=== PATIENT | female | born 1995 | race African-American/Black ===

== ENCOUNTER 2016-12-07 14:50 | Emergency (ER) | payer OTHER ==
--- NOTE | 2016-12-07 15:39 | PD ---
HPI Chief Complaint Contractions Date Seen: Dec 07, 2016 Time Seen: 15:00 (Martin White MD R1) Travel History International Travel<30 Days: No Contact w/Intl Traveler<30Days: No Known Affected Area: No (Martin White MD R1) History of Present Illness HPI Patient is a 21-year-old at 38 weeks 5 days who presents with contractions. She reports that her contractions started last week, and became acutely worse yesterday. She is currently having contractions about every 7 minutes for the last 1-2 hours. She reports lower abdominal pain and lower back pain, left greater than right. She reports vaginal bleeding the day before yesterday, she says she was having bright red spotting all day. She denies any leakage of fluid. She reports movement. Patient reports some nausea and vomiting all , unchanged from baseline. Patient reports diarrhea all day yesterday and today. Patient reports dysuria but denies any fever or chills. Patient had her care at [facility] in [place]. Para: 2 : 6 (Martin White MD R1) HPI Patient seen and evaluated with resident under direct supervision, agree with assessment and plan. (Roni Gastelum MD) History Past Medical History Narrative Medical Patient reports a history of hypokalemia (Martin White MD R1) Obstetric History Obstetric History Patient is a . She reports that she lost 3 early on. She delivered to full term uncomplicated babies with uncomplicated pregnancies with normal birthweight. (Martin White MD R1) Past Surgical History Surgical History: No Previous Surgery (Martin White MD R1) Family History Narrative Family History Patient denies a family history of hypertension, diabetes, problems in . She reports that the father of the baby has hemophilia. (Martin White MD R1) Social History Narrative Social History Patient recently moved in with her parents in the area, after she moved from [place]. She reports a little bit of tobacco marijuana use at the beginning of the . Alcohol Use: No Tobacco Use: No Substance Abuse: No (Martin White MD R1) Allergies-Medications (Allergen,Severity, Reaction): Coded Allergies: No Known Allergies (Unverified , 12/07/16) Review of Systems General / Constitutional: No: Fever, Chills Eyes: No: Visual changes HENT: No: Headaches Cardiovascular: Edema (feet swelling), No: Chest Pain or Discomfort Respiratory: No: Short of Breath Gastrointestinal: Nausea (at baseline, throughout all ), Vomiting (at baseline, throughout all ), Diarrhea (for the past 2 days), Abdominal Pain (lower abdominal pain, left greater than right) Genitourinary: Dysuria Musculoskeletal: Cramping (low abdominal and back pain), Edema (feet swelling) , Pain (low abdominal and back pain) Neurologic: No: Headache (Martin White MD R1) Physical Exam Blood pressure 127/85, pulse 91, respiratory rate 20, temperature 97.9, pain 5. Narrative GENERAL: Well-nourished, well-developed female patient. SKIN: Warm and dry. HEAD: Normocephalic and atraumatic. EYES: No scleral icterus. No injection or drainage. ENT: No nasal drainage noted. Mucous membranes pink. Airway patent. NECK: Supple, trachea midline. No JVD. CARDIOVASCULAR: Regular rate and rhythm without murmurs, gallops, or rubs. RESPIRATORY: Breath sounds equal bilaterally. No accessory muscle use. ABDOMEN/GI: Abdomen soft, non-tender, bowel sounds present, no rebound, no guarding Gravid to 38 weeks size GENITOURINARY: External Genitalia: intact and normal in appearance Cervix: Anterior, soft Dilatation: 1-2 cm Effacement: 60 percent Station: -3 Presentation: Vertex Membranes: Intact Uterine Contractions: Every 2-3 minutes FHT's: Category: Category 1 Baseline: 140 Reactive: Reactive Variability: Moderate Decels: None EXTREMITIES: No cyanosis or edema. BACK: Nontender without obvious deformity. No CVA tenderness. NEUROLOGICAL: Awake and alert. Motor and sensory grossly within normal limits. Five out of 5 muscle strength in all muscle groups. Normal speech. (Martin White MD R1) Data Data Vital Signs Reviewed: Yes (Martin White MD R1) MDM Plan Patient is a 21-year-old at 38 weeks 5 days who presents with contractions. 1. Contractions every 2-3 minutes with a cervical exam of 1-2 cm dilation, 60 percent effaced, -3 station Monitor vital signs Monitor labor status with tocometry Monitor heart tones UA Encourage by mouth hydration 2. dysuria UA remarkable for 30 protiein, 40 ketones, small leuk est, few mucus, not c/f infection 3. GBS status unknown GBS swab sent records obtained Addendum: Contractions seemed to have stopped. heart tracing still reassuring. Cervical exam shows no significant change. d/w Dr. Gastelum (Martin White MD R1) Attending Attestation Patient seen and evaluated with resident under direct supervision, agree with assessment and plan. (Roni Gastelum MD) Diagnosis Diagnosis: Primary Impression: Irregular contractions Additional Impression: Uterine contractions during Ruled Out: Labor and delivery, indication for care, Labor and delivery indication for care or intervention Disposition: 01 DISCHARGE HOME Condition: Good Martin White MD R1 Dec 07, 2016 15:39 Roni Gastelum MD Dec 07, 2016 16:49
[2016-12-07 15:57] LABS: BLOOD, URINE NEG (NEG); COMMENT (UR) CULT NOT INDICATED; CULTURE IF INDICATED CULT NOT INDICATED; GLUCOSE,URINE NEG (NEG); KETONE, URINE 40 mg/dL (NEG); MUCUS URINE FEW /lpf (OCC); NITRITE,URINE NEG (NEG); SQUAMOUS EPITHELIAL CELL URINE 7 /hpf (0-5); URINE COLOR YELLOW (YELLW/STRAW)
[2016-12-07 16:43] VITALS: BP 115/85; PULSE 92
[2016-12-11] MEDS ORDERED: PREN1MIS19 PO (15:03)
== END 2016-12-07 19:42 | disposition home or self-care (01) ==
LOC: HOBED 14:50
DX: O47.1 False labor at or after 37 completed weeks of gestation (principal); R30.0 Dysuria; Z3A.38 38 weeks gestation of pregnancy
CPT/HCPCS: 59025; 81001; 87081

== ENCOUNTER 2016-12-09 14:22 | Emergency (ER) | payer OTHER ==
[~2016-12-09] VITALS: Ht 160 cm; Wt 76.7 kg
--- NOTE | 2016-12-09 16:45 | PD ---
HPI Chief Complaint Contractions Date Seen: Dec 09, 2016 Time Seen: 16:40 Travel History International Travel<30 Days: No Contact w/Intl Traveler<30Days: No Known Affected Area: No History of Present Illness HPI 21-year-old 6 para 2 at 39 weeks gestation who has had increased contractions this morning. She denies any leakage of fluid or bleeding. She reports good movement. Para: 2 : 6 Miscarriage: 3 History Past Medical History Narrative Medical History of hypokalemia Obstetric History Obstetric History 3 SABs 2 prior vaginal deliveries She has had her care in the [place] area and has relocated here in the last week. Past Surgical History Surgical History: No Previous Surgery Family History Family History: she reports the father of the baby had hemophilia but she is uncertain of the nature of this Social History Alcohol Use: No Tobacco Use: No Substance Abuse: No Allergies-Medications (Allergen,Severity, Reaction): Coded Allergies: No Known Allergies (Unverified , 12/07/16) Review of Systems Except as stated in HPI: all other systems reviewed are Neg Physical Exam Narrative GENERAL: Well-nourished, well-developed patient. SKIN: Warm and dry. HEAD: Normocephalic and atraumatic. EYES: No scleral icterus. No injection or drainage. ENT: No nasal drainage noted. Mucous membranes pink. Airway patent. NECK: Supple, trachea midline. No JVD. CARDIOVASCULAR: Regular rate and rhythm without murmurs, gallops, or rubs. RESPIRATORY: Breath sounds equal bilaterally. No accessory muscle use. ABDOMEN/GI: Abdomen soft, non-tender, bowel sounds present, no rebound, no guarding Gravid to [-] weeks size Fundal Height: [-] GENITOURINARY: External Genitalia: intact and normal in appearance BUS glands: [-] Cervix: [-] Dilatation: [-2-3] Effacement: [70-] Station: [-3-] Presentation: [v] Membranes: [intact] Uterine Contractions: [-Mild irregular] FHT's: Category: [-1] Baseline: [-] Reactive: [-] Variability: [-] Decels: [-] EXTREMITIES: No cyanosis or edema. BACK: Nontender without obvious deformity. No CVA tenderness. NEUROLOGICAL: Awake and alert. Motor and sensory grossly within normal limits. Five out of 5 muscle strength in all muscle groups. Normal speech. MDM Medical Record Reviewed: Yes Narrative Course / MDM Assessment: 39 week intrauterine not in labor Plan: After serial exams today she was unchanged with mild contractions and discharged home to continue follow up with care for women. Diagnosis Diagnosis: Primary Impression: Irregular contractions Additional Impression: 39 weeks gestation of Disposition: 01 DISCHARGE HOME Patient Instructions: General Instructions, Early Labor Signs (ED), Movement (ED) Departure Forms: Tests/Procedures Roni Gastelum MD Dec 09, 2016 16:45
[2016-12-11] MEDS ORDERED: PREN1MIS19 PO (15:03)
== END 2016-12-09 17:11 | disposition home or self-care (01) ==
LOC: HOBED 14:22
DX: O47.1 False labor at or after 37 completed weeks of gestation (principal); Z3A.39 39 weeks gestation of pregnancy
CPT/HCPCS: 59025

== ENCOUNTER 2016-12-11 21:57 | Emergency (ER) | payer OTHER ==
[~2016-12-11 21:57] MED LIST: PREN1MIS19 PO
[2016-12-11 22:13] VITALS: BP 119/84; PULSE 100
[2016-12-11 22:19] VITALS: RESP 18; TEMP 97.8
--- NOTE | 2016-12-11 22:24 | PD ---
HPI Chief Complaint contractions with ROM Date Seen: Dec 11, 2016 Time Seen: 22:10 (Reji Holt MD R1) Travel History International Travel<30 Days: No Contact w/Intl Traveler<30Days: No Known Affected Area: No (Reji Holt MD R1) History of Present Illness HPI 21 YO at 39/2 weeks presents stating she is feeling contractions 5 minutes apart since 6PM and her "water broke" at 8PM. Pt is GBS+ and taking only PNV but took a Tylenol this evening. Category 1 tracing. Para: 2 : 6 (Reji Holt MD R1) History Past Medical History Medical History: Denies Significant Hx (Reji Holt MD) Past Surgical History Surgical History: No Previous Surgery (Reji Holt MD) Family History Family History: Negative (Reji Holt MD) Social History Alcohol Use: No Substance Abuse: Yes (smoked marijuana early in ) (Reji Holt MD R1) Allergies-Medications (Allergen,Severity, Reaction): Coded Allergies: No Known Allergies (Unverified , 12/13/16) Home Meds Active Scripts Vit W/ Ferrous Fumara (Pnv Plus Multivi 27-1 & 312 mg)1 Mis Mis1 Cap PO DAILY #90 BOTTLE Ref 4 Prov:Martin White MD R2 12/11/16 Discontinued Scripts Acetaminophen (Eq Acetaminophen)325 Mg [id number] Mg PO Q4H PRN (PAIN SCALE 1 TO 2) #30 TAB Prov:Martin White MD R2 12/14/16 Ibuprofen 600 Mg [id number] Mg PO Q6H PRN ( CRAMPING) #30 TAB Prov:Martin White MD R2 12/14/16 Review of Systems General / Constitutional: No: Fever, Weight Gain, Weight Loss, Chills, Other Eyes: No: Diploplia, Blurred Vision, Visual changes, Pain, Photophobia, Other HENT: No: Headaches, Vertigo, Dental Difficulties, Lightheadedness, Other Cardiovascular: No: Irregular Rhythm, Chest Pain or Discomfort, Palpitations, Tachycardia, Syncope, Varicosities, Edema, Cyanosis, Other Respiratory: No: Cough, Short of Breath, Wheezing, Other Gastrointestinal: No: Nausea, Vomiting, Diarrhea, Abdominal Pain, Hematemesis, Hematochezia, Constipation, Changes in Bowel Habits, Indigestion, Loss of Appetite, Other Genitourinary: Pelvic Pain (contractions), Discharge (gush of white fluid) Musculoskeletal: No: Limited ROM, Weakness, Cramping, Edema, Pain, Other Skin: No Rash, No Itching, No Dryness, No Lumps, No Change in Pigmentation, No Change in Nails, No Alopecia, No Lesions, No Breast Lumps, No Breast Tenderness , No Breast Swelling, No Other Neurologic: No: Weakness, Dizziness, Syncope, Focal Abnormalities, Coordination Problem, Headache, Slurred Speech, Seizures, Other (Reji Holt MD R1) Physical Exam Vital Signs Date Time Temp Pulse Resp B/P Pulse Ox O2 Delivery O2 Flow Rate FiO2 12/11/16 22:19 97.8 18 12/11/16 22:13 100 119/84 Narrative GENERAL: Well-nourished, well-developed patient in some discomfort. SKIN: Warm and dry. HEAD: Normocephalic and atraumatic. EYES: No scleral icterus. No injection or drainage. EOMI. ENT: No nasal drainage noted. Mucous membranes pink. Airway patent. NECK: Supple, trachea midline. CARDIOVASCULAR: Regular rate and rhythm without murmurs, gallops, or rubs. RESPIRATORY: Breath sounds equal bilaterally w/no increased WOB. No accessory muscle use. ABDOMEN/GI: Abdomen soft, non-tender, bowel sounds present, no rebound, no guarding Gravid to 39 weeks size GENITOURINARY: External Genitalia: intact and normal in appearance Cervix: anterior Dilatation: 3 Effacement: 80 Station: -1 Presentation: vtx Membranes: intact Uterine Contractions: 7 minutes, regular FHT's: Category: 1 Baseline: 160 Reactive: yes Variability: moderate Decels: none EXTREMITIES: No cyanosis or edema. NEUROLOGICAL: Awake and alert. Motor and sensory grossly within normal limits. Five out of 5 muscle strength in all muscle groups. Normal speech. (Reji Holt MD R1) Data Data Orders Vital Signs (Adult) .ON ADMISSION (12/11/16 22:18) ^ Labor Status (12/11/16 22:18) ^ Non Stress Test (12/11/16 22:18) ^ Hydration (12/11/16 22:18) Pamg-1 Test .ONCE (12/11/16 22:18) (Reji Holt MD R1) MDM Medical Record Reviewed: Yes Narrative Course / MDM 21YO at 39/2 weeks presents with contractions since 6PM and subjective ROM at 8PM, amnisure negative, cervix anterior, 3/80/-1/vertex. GBS+. Category 1 tracing with baseline at 160. 1. IUP at 39/2 weeks - Amnisure neg -- ROM unlikely - Regular contractions at 7 minutes - Tylenol 650 mg PO PRN for pain - Monitor for [address] Prado Addendum: Reevaluated at 2315 hours - no changes in status - discharge home ( Reji Holt MD R1) Diagnosis Diagnosis: Primary Impression: 39 weeks gestation of Additional Impression: False labor, antepartum Disposition: DISCHARGE HOME Condition: Stable Collaborating MD Comments Patient seen and evaluated with resident.Agree with care. (Urvashi Sylvester MD) Reji Holt MD R1 Dec 11, 2016 22:24 Urvashi Sylvester MD Dec 25, 2016 10:43
== END 2016-12-11 23:22 | disposition home or self-care (01) ==
LOC: HOBED 21:57
DX: O47.1 False labor at or after 37 completed weeks of gestation (principal); Z3A.39 39 weeks gestation of pregnancy
CPT/HCPCS: 59025; 84112

== ENCOUNTER 2016-12-13 03:13 | Inpatient (IN) | payer OTHER ==
[2016-12-13] VITALS (63 sets, daily range): BP systolic 85–153; BP diastolic 61–133; PULSE 73–159; RESP 16–20; TEMP 97.6–98.6
[~2016-12-13] VITALS: Ht 160 cm; Wt 76.7 kg
[2016-12-13] MEDS ORDERED: LACTATED RINGER'S 1000 ML INJ 1,000 ML IV PRN (03:47)
[2016-12-13] MEDS ORDERED: CITRIC ACID-SODIUM CITRATE LIQ 30 ML UDC PO SCH (04:00)
[2016-12-13] MEDS ORDERED: OXYTOCIN 30 UNITS-500ML PREMIX 500 ML IV ONE (04:00)
[2016-12-13] MEDS ORDERED: MINERAL OIL 10 ML VIAL TOPICAL PRN (04:00)
[2016-12-13] MEDS ORDERED: ONDANSETRON HCL 4 MG/2 ML VIAL IV PRN (04:00)
[2016-12-13] MEDS ORDERED: LIDOCAINE HCL 1% 50 ML VIAL I-DERMAL PRN (04:00)
[2016-12-13] MEDS ORDERED: SODIUM CHLORID 0.9% 500 ML INJ 500 ML IV PRN (04:00)
[2016-12-13] MEDS ORDERED: PENICILLIN G POTASSIUM INJ 5,000,000 UNITS in SODIUM CHLORIDE 0.9% INJ 100 ML IV ONE (04:00)
[2016-12-13] MEDS ORDERED: LIDOCAINE HCL 1% 50 ML VIAL INFIL PRN (04:00)
[2016-12-13] MEDS ORDERED: SODIUM CHLOR 0.9% 1000 ML INJ 1,000 ML IV PRN (04:07)
--- NOTE | 2016-12-13 04:09 | HHI.HP ---
HPI Chief Complaint contractions Date Seen: Dec 13, 2016 Time Seen: 03:45 (Raheem Hanley MD R2) Travel History International Travel<30 Days: No Contact w/Intl Traveler<30Days: No Known Affected Area: No (Raheem Hanley MD R2) History of Present Illness HPI This is a 21-year-old at 39/4 weeks gestational age see presented to the OB ED for contractions. Planned for induction this morning however she is already going into labor. She feels her contractions every 5-7 minutes. She was in the clinic today and found to have a dilation of 3. Since that she has progress to a 4. She denies any big gush of fluid. She reports good movement. She denies any bleeding or discharge. She says she feels a contractions in her back and pelvis. She is also feeling some increased pelvic pressure. She has been blurry vision, right upper quadrant abdominal pain, headache, lower extremity swelling. She is having a baby girl and she is looking forward to seeing her. Of note patient is GBS positive Para: 2 : 6 (Raheem Hanley MD R2) History Past Medical History Narrative Medical History of hypokalemia (Raheem Hanley MD R2) Obstetric History Obstetric History Patient is a . She reports that she lost 3 early on. She delivered two full term uncomplicated babies with uncomplicated pregnancies with normal birthweight (Raehem Hanley MD R2) Past Surgical History Surgical History: No Previous Surgery (Raheem Hanley MD R2) Family History Narrative Family History Patient denies a family history of hypertension, diabetes, problems in . She reports that the father of the baby has hemophilia. (Raheem aHnley MD R2) Social History Narrative Social History Patient recently moved in with her parents in the area, after she moved from [place]. She reports a little bit of tobacco marijuana use at the beginning of the . Alcohol Use: No Tobacco Use: No Substance Abuse: No (Raheem Hanley MD R2) Allergies-Medications (Allergen,Severity, Reaction): Coded Allergies: No Known Allergies (Unverified , 12/12/16) Home Meds Active Scripts Vit W/ Ferrous Fumara (Pnv Plus Multivi 27-1 & 312 mg)1 Mis Mis1 Cap PO DAILY #90 BOTTLE Ref 4 Prov:Martin White MD R1 12/11/16 Review of Systems General / Constitutional: Weight Gain, No: Fever, Weight Loss Eyes: No: Blurred Vision, Visual changes, Photophobia HENT: No: Headaches, Lightheadedness Cardiovascular: No: Irregular Rhythm, Chest Pain or Discomfort, Syncope, Edema Respiratory: No: Cough, Short of Breath, Wheezing Gastrointestinal: Nausea, Abdominal Pain, No: Vomiting, Hematemesis, Hematochezia, Indigestion Genitourinary: Pelvic Pain, No: Urgency, Frequency, Dysuria, Discharge, Menorrhagia, Vaginal Bleeding Musculoskeletal: No: Weakness, Edema Skin: No Rash, No Itching Neurologic: No: Weakness, Syncope, Headache, Slurred Speech, Seizures Psychiatric: No: Anxiety, Depression (Raheem Hanley MD R2) Physical Exam Narrative GENERAL: Well-nourished, well-developed patient. SKIN: Warm and dry. HEAD: Normocephalic and atraumatic. EYES: No scleral icterus. No injection or drainage. ENT: No nasal drainage noted. Mucous membranes pink. Airway patent. NECK: Supple, trachea midline. No JVD. CARDIOVASCULAR: Regular rate and rhythm without murmurs, gallops, or rubs. RESPIRATORY: Breath sounds equal bilaterally. No accessory muscle use. ABDOMEN/GI: Abdomen soft, non-tender, bowel sounds present, no rebound, no guarding Gravid to 39 weeks size Fundal Height: 39 GENITOURINARY: Cervix: Soft Dilatation: 4 Effacement: 80 Station: -1 Presentation: Vertex Membranes: Intact Uterine Contractions: None FHT's: Category: 2 Baseline: 140 Reactive: Up to 160 Variability: Moderate Decels: Variables EXTREMITIES: No cyanosis or edema. BACK: Nontender without obvious deformity. No CVA tenderness. NEUROLOGICAL: Awake and alert. Motor and sensory grossly within normal limits. Five out of 5 muscle strength in all muscle groups. Normal speech. (Raheem Hanley MD R2) Data Data Vital Signs Reviewed: Yes Orders Admit To Inpatient (12/13/16 ) Code Status (12/13/16 03:47) Vital Signs (Adult) .Per protocol (12/13/16 03:47) Activity Oob Ad Tiara (12/13/16 03:47) Heart (12/13/16 03:47) Amnioinfusion (12/13/16 03:47) Urinary Catheter Management .ONCE (12/13/16 03:47) Diet Npo (12/13/16 Breakfast) Lactated Ringer's 1000 Ml Inj (Lr 1000 M (12/13/16 03:47) Lactated Ringer's 1000 Ml Inj (Lr 1000 M (12/13/16 03:47) Sodium Chlorid 0.9% 500 Ml Inj (Ns 500 M (12/13/16 04:00) Sodium Chlor 0.9% 1000 Ml Inj (Ns 1000 M (12/13/16 04:07) Lidocaine 1% Inj (50 Ml) (Xylocaine 1% I (12/13/16 04:00) Citric Acid-Sodium Citrate Liq (Bicitra (12/13/16 04:00) Ondansetron Inj (Zofran Inj) (12/13/16 04:00) Fentanyl Inj (Fentanyl Inj) (12/13/16 04:00) Fentanyl Inj (Fentanyl Inj) (12/13/16 04:00) Penicillin G Potassium Inj (Pfizerpen-G (12/13/16 04:00) Penicillin G Potassium Inj (Pfizerpen-G (12/13/16 08:00) Complete Blood Count With Diff (12/13/16 03:47) Hold Clot (12/13/16 03:47) Abo/Rh Blood Type (12/13/16 03:47) Urinalysis - C+S If Indicated (12/13/16 03:47) Resp Oxygen Non Rebreathe Mask (12/13/16 ) ^ Epidural / Intrathecal Infus (12/13/16 03:47) Oxytocin 30 Units-500ml Premix (Pitocin (12/13/16 04:00) Lidocaine 1% Inj (50 Ml) (Xylocaine 1% I (12/13/16 04:00) Light Mineral Oil (Muri-Lube Oil) (12/13/16 04:00) Inpatient Certification (12/13/16 ) Specimen To Be Collected PRN (12/13/16 03:47) Ob/Psych Drug Screen, Urine (12/13/16 03:47) (Raheem Hanley MD R2) Assessment/Plan Problem List: (1) 39 weeks gestation of (2) Uterine contractions during Assessment and Plan This is a 21-year-old at 39/4 weeks gestational age presenting for induction of labor. 1. IUP: GBS positive, intact -Continuous monitoring for contractions: None -Continuous monitoring: Category 2 due to variables -Start penicillin -History of drug abuse: Urine drug screen ordered -Patient is requesting epidural when appropriate -Anticipate AROM in the am -Anticipate Pitocin to start contractions in the a.m. Discharge Planning Disposition discharged to to 3 days after delivery (Raheem Hanley MD R2) Attestation Agree with above. Start oxytocin if no no cervical change in 2-4 hours. (Darlin Alford MD) Raheem Hanley MD R2 Dec 13, 2016 04:09 Darlin Alford MD Dec 13, 2016 04:23
[2016-12-13] MEDS: LACTATED RINGER'S 1000 ML INJ 1,000 ML IV SCH ×2 (04:25→09:03)
[2016-12-13 04:58] LABS: AUTOMATED NEUTROPHIL # 7.1 TH/MM3 (1.8-7.7); BASOPHIL % 0.3 % (0.0-2.0); EOSINOPHIL # 0.1 TH/MM3 (0-0.4); EOSINOPHIL % 1.2 % (0.0-4.0); HEMATOCRIT 31.1 % (35.0-46.0); HEMO FLAGS DIFF FINAL; LYMPH % 20.2 % (9.0-44.0); MEAN CELL VOLUME 89.5 FL (80.0-100.0); MEAN CORPUSCULAR HEMOGLOBIN 31.3 PG (27.0-34.0); MEAN CORPUSCULAR HGB CONC 34.9 % (32.0-36.0); MONO % 6.4 % (0.0-8.0); NEUT % 71.9 % (16.0-70.0); PLATELET COUNT 215 TH/MM3 (150-450); RED BLOOD COUNT 3.47 MIL/MM3 (4.00-5.30); RED CELL DISTRIBUTION WIDTH 13.3 % (11.6-17.2); WHITE BLOOD COUNT 9.9 TH/MM3 (4.0-11.0)
[2016-12-13] MEDS ORDERED: PREN1TAB63 (05:09)
[2016-12-13 05:11] LABS: AMPHETAMINE, URINE NEG (NEG); BACTERIA, URINE RARE /hpf; BARBITURATES, URINE NEG (NEG); BLOOD, URINE NEG (NEG); COCAINE, URINE NEG (NEG); COMMENT (UR) CULT NOT INDICATED; CULTURE IF INDICATED CULT NOT INDICATED; GLUCOSE,URINE NEG (NEG); KETONE, URINE 80 mg/dL (NEG); MUCUS URINE FEW /lpf (OCC); NITRITE,URINE NEG (NEG); SQUAMOUS EPITHELIAL CELL URINE 2 /hpf (0-5); URINE COLOR YELLOW (YELLW/STRAW)
[2016-12-13] MEDS ORDERED: OXYTOCIN 30 UNITS-500ML PREMIX 500 ML IV SCH ×2 (07:45→11:45)
[2016-12-13] MEDS ORDERED: PENICILLIN G POTASSIUM INJ 2,500,000 UNITS in SODIUM CHLORIDE 0.9% INJ 100 ML IV SCH (08:00)
[2016-12-13] MEDS ORDERED: fentaNYL 2MCG-BUPIV 0.125% INJ 100 ML ONE (08:01)
--- NOTE | 2016-12-13 10:16 | PD.LABORPN ---
Subjective Subjective Epidural placed at 9 AM. AROM (clear fluid) at 9:45 AM, followed by IUPC placement. Pitocin at 2 milliunits/minute. Increased to 3 milliunits/minute after IUPC placement. Patient is comfortable; does not feel contractions. Legs are numb. Objective Vital Signs Vital Signs Date Time Temp Pulse Resp B/P Pulse Ox O2 Delivery O2 Flow Rate FiO2 12/13/16 10:00 16 12/13/16 10:00 20 12/13/16 10:00 97.6 75 116/72 12/13/16 09:59 75 118/78 12/13/16 09:55 79 12/13/16 09:55 102/90 12/13/16 09:51 111/67 12/13/16 09:51 79 12/13/16 09:50 153/133 12/13/16 09:50 77 12/13/16 09:45 92 133/111 12/13/16 09:43 82 110/61 12/13/16 09:40 81 12/13/16 09:40 88 133/104 12/13/16 09:35 79 12/13/16 09:35 84 119/73 12/13/16 09:31 84 114/69 12/13/16 09:30 90 12/13/16 09:26 103 102/73 12/13/16 09:25 83 12/13/16 09:24 18 12/13/16 09:22 92 130/79 12/13/16 09:20 93 12/13/16 09:15 81 12/13/16 09:15 80 122/79 12/13/16 09:15 81 12/13/16 09:11 159 114/75 12/13/16 09:10 82 12/13/16 09:10 82 12/13/16 09:06 118 118/81 12/13/16 09:05 77 12/13/16 09:05 78 12/13/16 09:00 78 12/13/16 09:00 77 12/13/16 09:00 75 142/77 12/13/16 08:55 79 12/13/16 08:55 92 12/13/16 08:55 94 129/87 12/13/16 08:50 76 127/86 12/13/16 08:50 77 12/13/16 08:50 78 8/3/17 08:49 76 131/85 12/13/16 08:45 75 12/13/16 08:45 87 125/92 12/13/16 08:45 86 12/13/16 08:45 16 12/13/16 08:35 83 12/13/16 08:34 83 120/79 12/13/16 08:30 84 12/13/16 07:40 73 12/13/16 07:35 86 12/13/16 07:30 77 12/13/16 07:25 75 12/13/16 07:20 87 12/13/16 07:19 98.0 12/13/16 07:18 77 111/72 12/13/16 07:17 16 12/13/16 07:17 78 92/69 12/13/16 07:15 85 12/13/16 07:10 80 12/13/16 07:05 76 12/13/16 07:00 77 12/13/16 06:10 73 12/13/16 06:05 74 12/13/16 06:03 75 112/67 12/13/16 05:41 18 12/13/16 05:35 97.8 Objective Pelvic Exam: Dilatation: 5 cm Effacement: 80 Station: 0 Presentation: Vertex Membranes: AROM; clear fluid Uterine Contractions: q2-3min FHT's: Category: 1 Baseline: 133 Reactive: + Variability: Moderate Decels: None Assessment/Plan Assessment and Plan Patient is a 21 y/o at 39 weeks and 4 days currently in active labor. * Epidural in place. * Pitocin running at 3 milliunits/min. Titrate up by 1-2 milliunits every 30 minutes to allow for adequate contractions. * AROM at 9:45 a.m.; clear fluid. * IUPC placement at 10:00 a.m. * Continuous monitoring. GBS positive * Has received Penicillin G x2. Joselin Luna MD R1 Dec 13, 2016 10:16
[2016-12-13] MEDS ORDERED: ePHEDrine/NS 25 MG/5 ML SYR IV PRN (10:30)
[2016-12-13] MEDS ORDERED: fentaNYL 2MCG-BUPIV 0.125% 100 ML EPIDURAL SCH (10:30)
[2016-12-13] MEDS ORDERED: NO SYSTEM NARCOTICS PRN (10:30)
[2016-12-13] MEDS ORDERED: DO NOT ADMINISTER ANTICOAGULANTS PRN (10:30)
--- NOTE | 2016-12-13 11:34 | PD.OB.DELI ---
Delivery Date: Dec 13, 2016 Anesthesia: Epidural Episiotomy: None Vaginal Delivery: Normal Presentation: Occiput posterior Nuchal Cord: None Delayed cord clamping (45 sec): Yes Infant: Female One Minute : 8 Five Minute : 9 Weight: 2910g Placenta: Spontaneous delivery, Intact, 3 vessel cord Laceration: 1 deg (periurethral ) Estimated blood loss: 250ml Additional Information This is a 21-year-old at 39/4 weeks gestational age who presented to the OB ED for contractions before scheduled IOL this morning. Patient had PCN x2 for GBS+ prior to epidural and AROM. Head delivered in OP by maternal effort without complications. One periurethral 1st deg lac noted to be hemostatic, so not repaired. Supervised by Dr. Birch. Assisted by Dr. Luna. Martin White MD R1 Dec 13, 2016 11:34
[2016-12-13] MEDS ORDERED: WITCH HAZEL 50%/GLYCERIN 12.5% 40 PAD JAR TOPICAL PRN (11:45)
[2016-12-13] MEDS ORDERED: SODIUM CHLORIDE 0.9% FLUSH 10 ML FLUSH IV FLUSH PRN (11:45)
[2016-12-13] MEDS ORDERED: oxyCODONE/ACETAMINOPHEN 5 MG/325 MG TAB PO PRN ×2 (11:45)
[2016-12-13] MEDS ORDERED: ZOLPIDEM TARTRATE 5 MG TAB PO PRN (11:45)
[2016-12-13] MEDS ORDERED: DOCUSATE SODIUM 50 MG/SENNA 8.6 MG TAB PO PRN (11:45)
[2016-12-13] MEDS ORDERED: ACETAMINOPHEN 325 MG TAB PO PRN (11:45)
[2016-12-13] MEDS ORDERED: ALUMINUM/MAGNESIUM/SIMETH 30 ML CUP PO PRN (11:45)
[2016-12-13] MEDS ORDERED: BENZOCAINE 20% TOPICAL SPRAY 60 ML CAN TOPICAL PRN (11:45)
[2016-12-13] MEDS ORDERED: ONDANSETRON ODT 4 MG TAB PO PRN (11:45)
[2016-12-13] MEDS ORDERED: DIPHTH/TETANUS/ACEL PERTUSSIS (BOOSTER) 0.5 ML VIAL/PFS IM ONE (16:00)
[2016-12-13] MEDS ORDERED: MEASLES, MUMPS, RUBELLA VACCINE 0.5 ML VIAL SQ ONE (16:00)
[2016-12-13] MEDS ORDERED: SODIUM CHLORIDE 0.9% FLUSH 10 ML FLUSH IV FLUSH SCH (21:00)
[2016-12-14] MEDS: IBUPROFEN 600 MG TAB PO PRN ×2 (03:06→09:07)
[2016-12-14 08:00] VITALS: BP 117/81; PULSE 66; RESP 18; TEMP 97.7
[2016-12-14 08:03] LABS: BASOPHIL % 0.3 % (0.0-2.0); EOSINOPHIL # 0.1 TH/MM3 (0-0.4); EOSINOPHIL % 1.2 % (0.0-4.0); HEMATOCRIT 30.5 % (35.0-46.0); HEMO FLAGS DIFF FINAL; LYMPH % 14.6 % (9.0-44.0); LYMPHOCYTE # 1.8 TH/MM3 (1.0-4.8); MEAN CORPUSCULAR HEMOGLOBIN 29.4 PG (27.0-34.0); MEAN CORPUSCULAR HGB CONC 32.7 % (32.0-36.0); MONO % 3.8 % (0.0-8.0); NEUT % 80.1 % (16.0-70.0); PLATELET COUNT 200 TH/MM3 (150-450); RED BLOOD COUNT 3.39 MIL/MM3 (4.00-5.30); RED CELL DISTRIBUTION WIDTH 13.4 % (11.6-17.2); WHITE BLOOD COUNT 12.4 TH/MM3 (4.0-11.0)
--- NOTE | 2016-12-14 10:06 | HHI.OB ---
Subjective Post Day: 1 Remarks Patient is a 21-year-old delivered at 39 weeks and 3 days. Patient is day 1 after . Patient's pain is well-controlled. Patient reports eating and drinking without any nausea or vomiting. Patient reports minimal bleeding. Patient has passed gas and bowel movements. Patient is walking without lower extremity pain or shortness of breath or chest pain. Patient reports desire for contraception with depo shot and bottle-feeding. Objective Vitals/I&O Vital Signs Date Time Temp Pulse Resp B/P Pulse Ox O2 Delivery O2 Flow Rate FiO2 12/13/16 19:40 98.6 12/13/16 19:40 74 18 119/74 12/13/16 14:32 98.3 12/13/16 14:32 76 18 110/73 12/13/16 13:30 78 107/66 12/13/16 13:15 93 113/80 12/13/16 13:06 93 111/74 12/13/16 13:01 92 122/106 12/13/16 12:46 83 132/86 12/13/16 12:36 118/81 12/13/16 12:19 97.8 12/13/16 12:19 18 12/13/16 12:18 82 106/64 12/13/16 12:15 18 12/13/16 12:01 101 117/67 12/13/16 11:57 88 125/71 12/13/16 11:56 18 12/13/16 11:45 18 12/13/16 11:32 98 107/64 12/13/16 11:30 105 85/68 12/13/16 10:15 89 118/71 Objective Remarks GENERAL: Well-nourished, well-developed patient. CARDIOVASCULAR: Regular rate and rhythm without murmurs, gallops, or rubs. RESPIRATORY: Breath sounds equal bilaterally. No accessory muscle use. ABDOMEN/GI: Abdomen soft, non-tender. Fundus: Firm, non-tender at umbilicus. GENITOURINARY: Light to moderate bleeding. EXTREMITIES: No cyanosis or edema, non-tender, without signs of DVT. Medications and IVs Current Medications Medications (Trade) Dose Ordered Sig/Lisa Route Start Time Stop Time Status Last Admin Miscellaneous Information No systemic narcotics to be given except... UNSCH PRN .XX 12/13/16 10:30 12/14/16 10:29 Miscellaneous Information DO NOT ADMINISTER ANY ANTICOAGUL... UNSCH PRN .XX 12/13/16 10:30 12/14/16 10:29 (fentaNYL 2MCG-BUPIV 0.125% INJ) 100 ml @ 0 mls/hr TITRATE EPIDURAL 12/13/16 10:30 12/13/16 13:21 (ePHEDrine/NS 25 MG/5 ML SYR) 10 mg UNSCH PRN IV 12/13/16 10:30 12/14/16 10:29 (NS Flush) 2 ml BID IV FLUSH 12/13/16 21:00 (NS Flush) 2 ml UNSCH PRN IV FLUSH 12/13/16 11:45 (Tylenol) 650 mg Q4H PRN PO 12/13/16 11:45 12/13/16 15:48 (Motrin) 600 mg Q6H PRN PO 12/13/16 11:45 12/14/16 09:07 (Percocet 5-325 Mg) 1 tab Q4H PRN PO 12/13/16 11:45 (Percocet 5-325 Mg) 2 tab Q4H PRN PO 12/13/16 11:45 (Americaine 20% Top Spr) 1 spray Q4H PRN TOPICAL 12/13/16 11:45 (Tucks Pads) 1 applic QID PRN TOPICAL 12/13/16 11:45 (Jonna-Colace) 2 tab Q12H PRN PO 12/13/16 11:45 (Ambien) 5 mg HS PRN PO 12/13/16 11:45 (Mag-Al Plus Susp Liq) 15 ml Q8H PRN PO 12/13/16 11:45 (Zofran Odt) 4 mg Q6H PRN PO 12/13/16 11:45 Assessment/Plan Problem List: (1) 39 weeks gestation of (2) Uterine contractions during Assessment and Plan Patient is a 21-year-old delivered at 39 weeks and 3 days. Patient is day 1 after . Patient was counseled to do 6 weeks of pelvic rest. Patient was counseled to follow up in 6 weeks. Patient requested follow-up and contraception with Depo-Provera shot. --AF VSS --Continue routine care --Motrin and Percocet when necessary for pain --Encourage OOB --Pelvic rest for 6 weeks will need follow-up appointment at that time. --Contraception: Depo-Provera shot --Anticipate discharge today d/w Dr. Birch. Discharge Planning Disposition discharged to to 3 days after delivery Martin White MD R1 Dec 14, 2016 10:06
[2016-12-14] MEDS ORDERED: ACET1TAB86 PO (10:07)
[2016-12-14] MEDS ORDERED: IBUP-232 PO (10:07)
--- NOTE | 2016-12-14 10:08 | HHI.DCPOC ---
Discharge Care Plan Diagnosis: (1) (spontaneous vaginal delivery) Report Symptoms to Your Doctor -Temperature above 100.5 degrees -Redness, of incision or excessive or foul smelling drainage -Unusual pain or calf pain -Increased vaginal bleeding -Painful or difficulty urinating -Feelings of extreme sadness or anxiety after 2 weeks Goals to Promote Your Health * To prevent worsening of your condition and complications, please follow up with Dr. White in clinic on Saturday at 1:30 pm. * To maintain your health at the optimal level, diet and exercise. Directions to Meet Your Goals Take your medications as prescribed Follow your dietary instruction Follow activity as directed Ensure plenty of rest for recovery Drink fluids for hydration Keep your appointments as scheduled Take your immunizations and boosters as scheduled If your symptoms worsen call your PCP, if no PCP go to Urgent Care Center or Emergency Room Smoking is Dangerous to Your Health. Avoid second hand smoke Call the 24-hour crisis hotline for domestic abuse at Martin White MD R1 Dec 14, 2016 10:08
[2016-12-14] MEDS ORDERED: medroxyPROGESTERone ACETATE SUSP 150 MG/ML SYRINGE IM ONE (11:00)
[2016-12-16 10:47] LABS: BATH SALTS (MDPV) UR NEG (NEG); ECSTASY (MDMA) UR NEG (NEG); GABAPENTIN UR NEG (NEG); HEROIN (6-ACETYLMORPHINE) UR NEG (NEG); HYDROMORPHONE U NEG (NEG); K2 SPICE UR NEG (NEG); OBMETHADONE UR NEG (NEG); OXYCODONE (PERCODAN) NEG (NEG); PHENCYCLIDINE URINE NEG (NEG)
== END 2016-12-14 13:36 | disposition home or self-care (01) | DRG 775 ==
LOC: H2EA 03:13 → H1EA 13:52
PROVIDERS: ADMIT Obstetrics & Gynecology; ATTEND Obstetrics & Gynecology
PROC: 10E0XZZ Delivery of Products of Conception, External Approach (ICD-10-PCS; principal; 2016-12-13)
PROC: 00HU33Z Insertion of Infusion Device into Spinal Canal, Percutaneous Approach (ICD-10-PCS; 2016-12-13)
PROC: 3E0R3CZ (ICD-10-PCS; 2016-12-13)
DX: O70.0 First degree perineal laceration during delivery (principal); O99.324 Drug use complicating childbirth; Z37.0 Single live birth; F12.90 Cannabis use, unspecified, uncomplicated; O99.824 Streptococcus B carrier state complicating childbirth; Z3A.39 39 weeks gestation of pregnancy
CPT/HCPCS: 80307; 81001; 84112; 85025; 86900; 86901; 90715; G0481; J1050; J2405; J2540; J2590; J3010; J7120

== ENCOUNTER 2017-07-23 08:17 | Emergency (ER) | payer SELFPAY ==
[~2017-07-23] VITALS: Ht 160 cm; Wt 81.0 kg
[2017-07-23 08:26] VITALS: BP 122/58; PULSE 75; RESP 16; TEMP 98.4; O2SAT 99
[2017-07-23] MEDS ORDERED: SODIUM CHLORIDE 0.9% FLUSH 10 ML FLUSH IV FLUSH PRN (08:45)
--- NOTE | 2017-07-23 08:48 | PD ---
HPI Chief Complaint: Abdominal Pain Time Seen by Provider: 08:31 Travel History International Travel<30 days: No Contact w/Intl Traveler<30days: No Traveled to known affect area: No History of Present Illness HPI The patient is a 22-year-old [place] female who presents to the emergency department for lower abdominal pain, intermittent of 2 weeks' duration. The patient states she is a with 3 previous vaginal deliveries. The patient's last menstrual cycle was June 28, she had 2 separate episodes of vaginal bleeding in June. The patient had a positive test at home and then a subsequent negative test at home. She notes suprapubic discomfort with mild nausea, vomiting, and a few episodes of diarrhea. She does complain of suprapubic discomfort but denies any current vaginal bleeding or discharge. Symptoms are mild to moderate. She denies previous abdominal surgeries. The patient does not have a local primary physician. PFSH Past Medical History Medical History: Denies Significant Hx Hx Anticoagulant Therapy: No Diabetes: No Tetanus Vaccination: Unknown ?: Unknown Past Surgical History Surgical History: No Previous Surgery Social History Alcohol Use: Yes (RARE) Tobacco Use: Yes (/4 PPD) Substance Use: No Allergies-Medications (Allergen,Severity, Reaction): Coded Allergies: No Known Allergies (Unverified Adverse Reaction, Unknown, 07/23/17) Reported Meds & Prescriptions Reported Meds & Active Scripts Active No Active Prescriptions or Reported Medications Review of Systems Except as stated in HPI: all other systems reviewed are Neg General / Constitutional: No: Fever Cardiovascular: No: Chest Pain or Discomfort Respiratory: No: Shortness of Breath Gastrointestinal: Positive: Nausea, Vomiting, Diarrhea, Abdominal Pain Genitourinary: No: Dysuria, Discharge, Vaginal Bleeding Physical Exam Narrative GENERAL: Awake, alert, pleasant 22-year-old female who appears her stated age and is in no acute respiratory distress. SKIN: Focused skin assessment warm/dry. HEAD: Atraumatic. Normocephalic. EYES: No injection or drainage. ENT: No nasal bleeding or discharge. Mucous membranes pink and moist. NECK: Trachea midline. No JVD. GASTROINTESTINAL: Abdomen soft, mild suprapubic tenderness. No guarding or rigidity. Back: No CVA tenderness. MUSCULOSKELETAL: No obvious deformities. No clubbing. No cyanosis. No edema. NEUROLOGICAL: Awake and alert. No obvious cranial nerve deficits. Motor grossly within normal limits. Normal speech. PSYCHIATRIC: Appropriate mood and affect; insight and judgment normal. Data Data Last Documented VS Vital Signs Date Time Temp Pulse Resp B/P (MAP) Pulse Ox O2 Delivery O2 Flow Rate FiO2 07/23/17 08:56 99 Room Air 07/23/17 08:26 98.4 75 16 122/58 (79) Orders Orders Beta Hcg (Quant/Titer) (07/23/17 08:42) Complete Blood Count With Diff (07/23/17 08:42) Comprehensive Metabolic Panel (07/23/17 08:42) Lipase (07/23/17 08:42) Urinalysis - C+S If Indicated (07/23/17 08:42) Ecg Monitoring (07/23/17 08:42) Oximetry (07/23/17 08:42) Sodium Chloride 0.9% Flush (Ns Flush) (07/23/17 08:45) Ed Urine Pregnancytest Poc (07/23/17 08:42) Ed Discharge Order (07/23/17 09:35) Labs Laboratory Tests Test 07/23/17 08:40 07/23/17 08:45 Urine Collection Type VOIDED Urine Color YELLOW Urine Turbidity CLEAR Urine pH 6.0 Urine Specific [place] 1.025 Urine Protein NEG mg/dL Urine Glucose (UA) NEG mg/dL Urine Ketones NEG mg/dL Urine Occult Blood TRACE Urine Nitrite NEG Urine Bilirubin NEG Urine Urobilinogen 0.2 MG/DL Urine Leukocyte Esterase NEG Urine WBC 0-2 /hpf Urine Squamous Epithelial Cells 0-2 /hpf Urine Mucus MOD /lpf Microscopic Urinalysis Comment CULT NOT INDICATED White Blood Count 5.4 TH/MM3 Red Blood Count 4.44 MIL/MM3 Hemoglobin 13.1 GM/DL Hematocrit 39.2 % Mean Corpuscular Volume 88.4 FL Mean Corpuscular Hemoglobin 29.5 PG Mean Corpuscular Hemoglobin Concent 33.4 % Red Cell Distribution Width 12.7 % Platelet Count 337 TH/MM3 Mean Platelet Volume 7.9 FL Neutrophils (%) (Auto) 62.7 % Lymphocytes (%) (Auto) 27.0 % Monocytes (%) (Auto) 5.3 % Eosinophils (%) (Auto) 1.5 % Basophils (%) (Auto) 3.5 % Neutrophils # (Auto) 3.3 TH/MM3 Lymphocytes # (Auto) 1.5 TH/MM3 Monocytes # (Auto) 0.3 TH/MM3 Eosinophils # (Auto) 0.1 TH/MM3 Basophils # (Auto) 0.2 TH/MM3 CBC Comment DIFF FINAL Differential Comment Blood Urea Nitrogen 13 MG/DL Creatinine 0.94 MG/DL Random Glucose 89 MG/DL Total Protein 7.8 GM/DL Albumin 3.7 GM/DL Calcium Level 8.4 MG/DL Alkaline Phosphatase 75 U/L Aspartate Amino Transf (AST/SGOT) 12 U/L Alanine Aminotransferase (ALT/SGPT) 12 U/L Total Bilirubin 0.2 MG/DL Sodium Level 141 MEQ/L Potassium Level 3.9 MEQ/L Chloride Level 107 MEQ/L Carbon Dioxide Level 27.8 MEQ/L Anion Gap 6 MEQ/L Estimat Glomerular Filtration Rate 89 ML/MIN Lipase 102 U/L Human Chorionic Gonadotropin, Quant LESS THAN 1 MIU/ML MDM Medical Decision Making Medical Screen Exam Complete: Yes Emergency Medical Condition: Yes Medical Record Reviewed: Yes Interpretation(s) Laboratory Tests Test 07/23/17 08:40 07/23/17 08:45 Urine Collection Type VOIDED Urine Color YELLOW Urine Turbidity CLEAR Urine pH 6.0 Urine Specific [place] 1.025 Urine Protein NEG mg/dL Urine Glucose (UA) NEG mg/dL Urine Ketones NEG mg/dL Urine Occult Blood TRACE Urine Nitrite NEG Urine Bilirubin NEG Urine Urobilinogen 0.2 MG/DL Urine Leukocyte Esterase NEG Urine WBC 0-2 /hpf Urine Squamous Epithelial Cells 0-2 /hpf Urine Mucus MOD /lpf Microscopic Urinalysis Comment CULT NOT INDICATED White Blood Count 5.4 TH/MM3 Red Blood Count 4.44 MIL/MM3 Hemoglobin 13.1 GM/DL Hematocrit 39.2 % Mean Corpuscular Volume 88.4 FL Mean Corpuscular Hemoglobin 29.5 PG Mean Corpuscular Hemoglobin Concent 33.4 % Red Cell Distribution Width 12.7 % Platelet Count 337 TH/MM3 Mean Platelet Volume 7.9 FL Neutrophils (%) (Auto) 62.7 % Lymphocytes (%) (Auto) 27.0 % Monocytes (%) (Auto) 5.3 % Eosinophils (%) (Auto) 1.5 % Basophils (%) (Auto) 3.5 % Neutrophils # (Auto) 3.3 TH/MM3 Lymphocytes # (Auto) 1.5 TH/MM3 Monocytes # (Auto) 0.3 TH/MM3 Eosinophils # (Auto) 0.1 TH/MM3 Basophils # (Auto) 0.2 TH/MM3 CBC Comment DIFF FINAL Differential Comment Blood Urea Nitrogen 13 MG/DL Creatinine 0.94 MG/DL Random Glucose 89 MG/DL Total Protein 7.8 GM/DL Albumin 3.7 GM/DL Calcium Level 8.4 MG/DL Alkaline Phosphatase 75 U/L Aspartate Amino Transf (AST/SGOT) 12 U/L Alanine Aminotransferase (ALT/SGPT) 12 U/L Total Bilirubin 0.2 MG/DL Sodium Level 141 MEQ/L Potassium Level 3.9 MEQ/L Chloride Level 107 MEQ/L Carbon Dioxide Level 27.8 MEQ/L Anion Gap 6 MEQ/L Estimat Glomerular Filtration Rate 89 ML/MIN Lipase 102 U/L Human Chorionic Gonadotropin, Quant LESS THAN 1 MIU/ML Differential Diagnosis Differential diagnoses includes , ectopic , complete AB, incomplete AB, PID, cervicitis, vaginitis, gastroenteritis, viral syndrome, UTI , pyelonephritis. Narrative Course A bedside UA test was obtained, was negative. However, patient states she had a positive test at home and a negative test at home. Therefore, quantitative beta hCG was sent to lab. CBC, CMP, lipase was sent to lab. UA was sent to lab. Patient declined pain medication and antiemetics. Bedside urine test was negative. Quantitative beta hCG was negative. UA is unremarkable. White count is normal. LFTs and lipase are unremarkable. Patient's vitals on labs are within normal limits, physical examination is benign. The patient did have irregular menstrual cycle with vaginal bleeding with positive test such are negative, patient may have had a spontaneous . Patient is stable for outpatient follow-up. She will be provided a copy of her labs at discharge. Diagnosis Primary Impression: Pelvic pain in female Patient Instructions: General Instructions Additional Instructions: Please provide the patient a copy of her labs at discharge. 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 Return if symptoms worsen or progress. Med/Other Pt SpecificInfo: No Change to Meds Scripts No Active Prescriptions or Reported Meds Disposition: 01 DISCHARGE HOME Condition: Stable Darell Jarquin MD Jul 23, 2017 08:48
[2017-07-23 08:55] LABS: BILIRUBIN, URINE NEG (NEG); BLOOD, URINE TRACE (NEG); GLUCOSE,URINE NEG (NEG); KETONE, URINE NEG (NEG); NITRITE,URINE NEG (NEG); URINE COLOR YELLOW (YELLW/STRAW); URINE LEUKOCYTE ESTERASE NEG (NEG)
[2017-07-23 08:56] VITALS: O2SAT 99
[2017-07-23 09:02] LABS: AUTOMATED NEUTROPHIL # 3.3 TH/MM3 (1.8-7.7); BASOPHIL # 0.2 TH/MM3 (0-0.2); BASOPHIL % 3.5 % (0.0-2.0); EOSINOPHIL # 0.1 TH/MM3 (0-0.4); EOSINOPHIL % 1.5 % (0.0-4.0); HEMATOCRIT 39.2 % (35.0-46.0); HEMOGLOBIN 13.1 GM/DL (11.6-15.3); LYMPHOCYTE # 1.5 TH/MM3 (1.0-4.8); MEAN CELL VOLUME 88.4 FL (80.0-100.0); MEAN CORPUSCULAR HEMOGLOBIN 29.5 PG (27.0-34.0); MEAN CORPUSCULAR HGB CONC 33.4 % (32.0-36.0); MEAN PLATELET VOLUME 7.9 FL (7.0-11.0); MONO % 5.3 % (0.0-8.0); MONOCYTE # 0.3 TH/MM3 (0-0.9); NEUT % 62.7 % (16.0-70.0); PLATELET COUNT 337 TH/MM3 (150-450); RED BLOOD COUNT 4.44 MIL/MM3 (4.00-5.30); RED CELL DISTRIBUTION WIDTH 12.7 % (11.6-17.2); WHITE BLOOD COUNT 5.4 TH/MM3 (4.0-11.0)
[2017-07-23 09:03] LABS: CHLORIDE 107 MEQ/L (98-107); SODIUM (NA) 141 MEQ/L (136-145)
[2017-07-23 09:10] LABS: CALCIUM 8.4 MG/DL (8.5-10.1)
[2017-07-23 09:11] LABS: ALBUMIN 3.7 GM/DL (3.4-5.0); BICARBONATE 27.8 MEQ/L (21.0-32.0); BLOOD UREA NITROGEN 13 MG/DL (7-18); GLUCOSE,RANDOM 89 MG/DL (74-106)
[2017-07-23 09:12] LABS: ALT (GPT) 12 U/L (10-53); AST (GOT) 12 U/L (15-37)
[2017-07-23 09:14] LABS: CREATININE 0.94 MG/DL (0.50-1.00); GLOMERULAR FILTRATION RATE 89 ML/MIN (>89); TOTAL BILIRUBIN ADULT 0.2 MG/DL (0.2-1.0); TOTAL PROTEIN 7.8 GM/DL (6.4-8.2)
[2017-07-23 09:15] LABS: ALKALINE PHOSPHATASE 75 U/L (45-117)
[2017-07-23 09:29] LABS: MUCUS URINE MOD /lpf (OCC); SQUAMOUS EPITHELIAL CELL URINE 0-2 /hpf (0-5); WBC, URINE 0-2 /hpf (0-5)
[2017-07-23 09:40] VITALS: BP 125/70
== END 2017-07-23 09:56 | disposition home or self-care (01) ==
LOC: PHED 08:17
DX: R10.2 Pelvic and perineal pain (principal); F17.210 Nicotine dependence, cigarettes, uncomplicated
CPT/HCPCS: 80053; 81001; 83690; 84702; 84703; 85025; 99283